=== PATIENT | male | born 1985 | race Caucasian/White ===

== ENCOUNTER 2019-11-07 16:05 | Emergency (ER) | payer SELFPAY ==
[~2019-11-07] VITALS: Ht 171.4 cm; Wt 78.5 kg
[2019-11-07 16:20] VITALS: BP 123/68
--- NOTE | 2019-11-07 16:39 | NUR ---
34 Y/O M C/C LACERATION ON RIGHT THUMB WHILE MOVING COVER OF TOILET TODAY. PER PT USED ALTERNATIVE MEASURES AT HOME TO STOP BLEEDING. BLEEDING DID NOT STOP AND CAME TO ER. PT GIN/CELENA WDL. PAIN 04/25. NKA. NO HX. NO RX. NO N/V/D. SIDE RAIL X1.
[2019-11-07 17:27] VITALS: BP 123/68
--- NOTE | 2019-11-07 17:27 | NUR ---
Patient discharged with v/s stable. Written and verbal after care instructions given and explained. Patient verbalized understanding. Ambulatory with steady gait. All questions addressed prior to discharge. Advised to follow up with PMD.
== END 2019-11-07 17:27 | disposition home or self-care (01) ==
LOC: MED 16:05
DX: S61.411A Laceration without foreign body of right hand, initial encounter (principal); W45.8XXA Other foreign body or object entering through skin, initial encounter; Y93.89 Activity, other specified; Y92.89 Other specified places as the place of occurrence of the external cause; Y99.8 Other external cause status
CPT/HCPCS: 99282

== ENCOUNTER 2020-09-08 06:19 | Emergency (ER) | payer SELFPAY ==
[~2020-09-08] VITALS: Ht 172.7 cm; Wt 79.8 kg
[2020-09-08 06:28] VITALS: BP 133/73
--- NOTE | 2020-09-08 06:34 | NUR ---
PT AMBULATED TO LOBBY.
--- NOTE | 2020-09-08 06:34 | NUR ---
VISUAL ACUITY FOLLOWS- LT EYE 20/20, RT EYE 20/20, BOTH 20/20. SEE COMPLETE ASSESSMENT FOR ADDTIONAL INFORMATION.
[2020-09-08] MEDS ORDERED: FLUORESCEIN OPTH STRIP 1 MG OP ONE (07:10)
[2020-09-08] MEDS ORDERED: TETRACAINE HCL/PF 0.5% OPTH 4 ML BTL OP ONE (07:10)
--- NOTE | 2020-09-08 07:40 | NUR ---
pt amb to bed 6.
[2020-09-08 10:52] VITALS: BP 128/78
== END 2020-09-08 09:38 | disposition home or self-care (01) ==
LOC: MED 06:19
DX: T15.01XA Foreign body in cornea, right eye, initial encounter (principal); X58.XXXA Exposure to other specified factors, initial encounter; Y93.89 Activity, other specified; Y92.89 Other specified places as the place of occurrence of the external cause; Y99.8 Other external cause status
CPT/HCPCS: 65222; 99284